=== PATIENT | female | born 1970 | race Caucasian/White ===

== ENCOUNTER → 2025-01-18 | Outpatient (BNVA) | payer BC, MEDICAID, SELFPAY | END | disposition home or self-care (01) | PROVIDERS: PCP Family Medicine; Referring Provider Family Medicine; Visit Provider Urology | DX: N39.46 Mixed incontinence (principal); N81.10 Cystocele, unspecified; I10 Essential (primary) hypertension | CPT/HCPCS: 81003; 99213; G0463 ==